=== PATIENT | female | born 1975 | race Caucasian/White ===

== ENCOUNTER 2018-08-15 06:59 | Emergency (ER) | payer BC, MEDICAID, OTHER, SELFPAY ==
[~2018-08-15] VITALS: Ht 152.4 cm; Wt 57.0 kg
[2018-08-15 07:08] VITALS: BP 133/99
== END 2018-08-15 09:07 | disposition home or self-care (01) ==
LOC: ED 09:05
DX: T69.9XXA Effect of reduced temperature, unspecified, initial encounter (principal); M79.10 Myalgia, unspecified site; X58.XXXA Exposure to other specified factors, initial encounter; Y93.9 Activity, unspecified; Y92.9 Unspecified place or not applicable; Y99.8 Other external cause status
CPT/HCPCS: 99283

== ENCOUNTER 2018-10-08 06:37 | Emergency (ER) | payer MEDICAID ==
[~2018-10-08] VITALS: Ht 152.4 cm; Wt 55.0 kg
--- NOTE | 2018-10-08 06:52 | NUR ---
PT HERE FOR COLD EXPOSURE. VSS. PT PLACED IN WARM BLANKETS. SHIVERING HAS STOPPED. PT AAOX4 BUT DROWSY. REPORT TO TORSTEN PITTMAN
--- NOTE | 2018-10-08 06:53 | NUR ---
HANDOFF REPORT FROM ARMOND PITTMAN. PT RESTING ON [facility]. A&OX4, SPO2 MONITORS IN PLACE, CALL LIGHT IN REACH. ALL CONCERNS ADRESSED. VSS.
--- NOTE | 2018-10-08 08:52 | NUR ---
PT RESTING ON [facility]. RESP NORMAL. CALL MILES IN REACH.
[2018-10-08 09:38] VITALS: BP 129/88
--- NOTE | 2018-10-08 09:39 | NUR ---
Patient/Caregiver given discharge instructions and they have confirmed that they understand the instructions. Patient ambulatory with steady gait. PT PROVIDED WITH WARM CLOTHING. PT LEFT WITHOUT DC PAPERWORK. PT LEFT WITH ALL PERSONAL BELONGINGS.
== END 2018-10-08 09:41 | disposition home or self-care (01) ==
LOC: ED 08:49
DX: T68.XXXA Hypothermia, initial encounter (principal); Z72.9 Problem related to lifestyle, unspecified; X31.XXXA Exposure to excessive natural cold, initial encounter
CPT/HCPCS: 99283